=== PATIENT | female | born 1970 | race Caucasian/White ===

== ENCOUNTER 2017-02-20 20:06 | Emergency (ER) | payer MEDICAID ==
[2017-02-20 20:22] VITALS: BP 150/92; PULSE 88; RESP 16; TEMP 97.7; O2SAT 98
[2017-02-20] MEDS ORDERED: CEPHALEXIN 500 MG CAP PO ONE (20:42)
[2017-02-20] MEDS ORDERED: IBUPROFEN 600 MG TAB PO ONE (20:45)
--- NOTE | 2017-02-20 20:46 | EDPHY ---
H & P Time Seen by Provider: 02/20/17 20:21 HPI/ROS: This patient reports that she bumped up against a table and then developed a area of redness increasing swelling and pain to the left proximal forearm over the past week now with moderate to severe pain isolated the area of swelling and redness. She denies any other associated symptoms. She has not tried any medications for the pain. Given location I inquired if this is a shooter's abscess but the patient flatly denies any IV drug use. She is accompanied by her significant other who drove her here by private vehicle for evaluation. ROS: Constitutional: No fevers or chills. GI: No nausea vomiting Integumentary: No other skin lesions this time. no drainage from the current site. Neuro: No numbness or tingling. 5 point ROS is otherwise negative Smoking Status: Never smoked Physical Exam: Physical Exam Vital signs are normal. General: No acute distress Eyes: Pupils equal and react to light. Extraocular motions are intact. Lungs: No respiratory distress. Cardiac: Brisk capillary refill is intact throughout. Pulses are 2+ and symmetric in the affected extremity. Skin: There is a 3 cm area of induration and fluctuance in the center surrounded by erythema. The total size of the erythema is approximately 5 x 4 cm. There is associated warmth to touch and associated moderate to exquisite tenderness. Neuro: Alert and oriented x3 with no sensorimotor deficits. Constitutional: Initial Vital Signs Temperature (C) 36.5 C 02/20/17 20:10 Heart Rate 88 02/20/17 20:10 Respiratory Rate 16 02/20/17 20:10 Blood Pressure 150/92 H 02/20/17 20:10 O2 Sat (%) 98 02/20/17 20:10 O2 Delivery Mode Room Air Allergies/Adverse Reactions: No Known Allergies Allergy (Unverified 02/20/17 20:19) Home Medications: Medication Instructions Recorded Cephalexin [Keflex (*)] 500 mg PO QID #40 cap 02/20/17 MDM/Departure - MDM Diagnostics: Wound culture pending Procedures: Procedure: Abscess drainage. The patient's abscess was located on the left forearm. I obtained verbal consent from the patient to drain the abscess who was informed about the possibility of bleeding and pain. Wound is prepped with chlorhexidine, anesthesia with 1% plain lidocaine, 27 gauge needle-2 mL with good effect. The abscess was incised with a 11. Scalpel-small T-shaped incision and a small amount of purulent drainage was expressed. I probed the wound with Barb clamp explored for any loculations finding no significant loculations and massage until no further purulence was obtained. I irrigated the wound with clear return and placed some packing. The patient tolerated the procedure well. The procedure was performed by myself. There were no complications. Medications Given: Discontinued Medications Cephalexin HCl (Keflex) 500 mg PO EDNOW ONE PRN Reason: Protocol Stop: 02/20/17 20:43 Last Admin: 02/20/17 20:49 Dose: 500 mg Ibuprofen (Motrin) 600 mg PO EDNOW ONE Stop: 02/20/17 20:46 Last Admin: 02/20/17 20:49 Dose: 600 mg ED Course/Re-evaluation: Dressing was placed. We counseled patient regarding wound care She has good 1st dose of Keflex. Wound culture sent and pending. She is also treated with ibuprofen. Discussion: Forearm abscess with out evidence of systemic symptoms/sepsis or other complicating factors at this time. - Depart Disposition: Home, Routine, Self-Care Clinical Impression: Abscess of arm, left Condition: Good Instructions: Abscess (ED) Additional Instructions: Diagnosis: Left arm abscess Plan: Apply warm packs Clean daily with warm soapy water Pull out the packing in 2 days Keflex antibiotic Ibuprofen & Tylenol for pain Return for any significant worsening despite the treatment plan. Prescriptions: Cephalexin [Keflex (*)] 500 mg PO QID #40 cap Referrals: NONE *PRIMARY CARE P,. [Primary Care Provider] - As per Instructions
== END 2017-02-20 21:05 | disposition home or self-care (01) ==
LOC: CED 20:06
PROC: 0H9CXZZ Drainage of Left Upper Arm Skin, External Approach (ICD-10-PCS; principal; 2017-02-20)
DX: L02.414 Cutaneous abscess of left upper limb (principal)